=== PATIENT | female | born 1960 | race Caucasian/White ===

== ENCOUNTER 2016-10-22 07:55 | Emergency (ER) | payer OTHER ==
[2016-10-22] VITALS (15 sets, daily range): BP systolic 128–166; BP diastolic 72–82; PULSE 63–108; RESP 16–20; TEMP 98–98.8; O2SAT 93–99
[~2016-10-22 07:55] MED LIST: ZOCO40TA PO
[2016-10-22] MEDS ORDERED: NITROGLYCERIN-DEXTROSE INJ 250 ML ONE (08:05)
[2016-10-22] MEDS ORDERED: ASPIRIN 81 MG CHEW TAB ONE (08:05)
[2016-10-22] MEDS ORDERED: HEPARIN SODIUM - IV 10,000 UNITS/10 ML VIAL ONE ×2 (08:05→08:54)
[2016-10-22] MEDS ORDERED: NITROGLYCERIN 0.4 MG SL 25 TABS/BTL SL ONE (08:06)
[2016-10-22] MEDS ORDERED: SODIUM CHLOR 0.9% 1000 ML INJ 1,000 ML IV ONE (08:07)
[2016-10-22] MEDS ORDERED: HEPARIN SODIUM - IV 10,000 UNITS/10 ML VIAL IV STA (08:07)
[2016-10-22] MEDS ORDERED: NITROGLYCERIN 0.4 MG SL 25 TABS/BTL SL STA (08:07)
[2016-10-22] MEDS ORDERED: ASPIRIN 81 MG CHEW TAB PO STA (08:07)
[2016-10-22] MEDS ORDERED: SODIUM CHLORIDE 0.9% FLUSH 10 ML FLUSH IVF PRN (08:15)
[2016-10-22] MEDS ORDERED: NITROGLYCERIN-DEXTROSE INJ 250 ML IV SCH (08:15)
[2016-10-22 08:25] LABS: CHLORIDE 106 MEQ/L (98-107); POTASSIUM 3.9 MEQ/L (3.5-5.1); SODIUM (NA) 138 MEQ/L (136-145)
--- NOTE | 2016-10-22 08:25 | PD ---
HPI Chief Complaint: STEMI Alert Time Seen by Provider: 08:07 Travel History International Travel<30 days: No Contact w/Intl Traveler<30days: No Traveled to known affect area: No History of Present Illness HPI Is a 56-year-old woman presents to the emergency department complaining of pressure-like chest discomfort rating in her back between her shoulder blades and in her arm. It started this morning at about an hour so ago while she was washing dishes. She states she's had the pain in her shoulder blades before intermittently with exertion but has never had the pain this severe. She is a history of hyperlipidemia and tobacco use but no history of coronary artery disease. She does not use illicit drugs. She was feeling well before this. History Past Medical History Narrative Medical Hyperlipidemia Tobacco use Social History Alcohol Use: No Tobacco Use: Yes (PPD) Allergies-Medications (Allergen,Severity, Reaction): Coded Allergies: Niacin (Unverified Adverse Reaction, Intermediate, feels like blood is burning, 01/05/10) No Known Allergies (Verified , 12/26/09) Reported Meds & Prescriptions Reported Meds & Active Scripts Active Reported Zocor (Simvastatin) 40 Mg Tab 40 Mg PO HS Review of Systems Except as stated in HPI: all other systems reviewed are Neg Physical Exam Narrative GENERAL: 56 year-old woman, appears uncomfortable but nontoxic. Apprehensive. SKIN: Focused skin assessment warm/dry. CARDIOVASCULAR: Regular rate and rhythm. No murmur appreciated. Symmetric peripheral pulses. RESPIRATORY: No accessory muscle use. Clear to auscultation. Breath sounds equal bilaterally. GASTROINTESTINAL: Abdomen soft, non-tender, nondistended. Hepatic and splenic margins not palpable. MUSCULOSKELETAL: No obvious deformities. No edema. NEUROLOGICAL: Awake and alert. No obvious cranial nerve deficits. Motor grossly within normal limits. Normal speech. PSYCHIATRIC: Apprehensive and anxious. Data Data Last Documented VS Vital Signs Date Time Temp Pulse Resp B/P Pulse Ox O2 Delivery O2 Flow Rate FiO2 10/22/16 08:04 98.7 93 20 152/78 99 Orders Nitroglycerin-Dextrose Inj (Nitroglyceri (10/22/16 08:05) Aspirin Chew (Aspirin Chew) (10/22/16 08:05) Heparin Inj (Heparin Inj) (10/22/16 08:05) Nitroglycerin Sl (Nitrostat Sl) (10/22/16 08:06) Troponin I (10/22/16 08:07) Ckmb (Isoenzyme) Profile (10/22/16 08:07) Complete Blood Count With Diff (10/22/16 08:07) Basic Metabolic Panel (Bmp) (10/22/16 08:07) Magnesium (Mg) (10/22/16 08:07) Calcium (10/22/16 08:07) Prothrombin Time / Inr (Pt) (10/22/16 08:07) Act Partial Throm Time (Ptt) (10/22/16 08:07) B-Type Natriuretic Peptide (10/22/16 08:07) Chest, Single Ap (10/22/16 08:07) Electrocardiogram (10/22/16 08:07) Oxygen Administration (10/22/16 08:07) Iv Access Insert/Monitor (10/22/16 08:07) Oximetry (10/22/16 08:07) Sodium Chlor 0.9% 1000 Ml Inj (Ns 1000 M (10/22/16 08:07) Sodium Chloride 0.9% Flush (Ns Flush) (10/22/16 08:15) Aspirin Chew (Aspirin Chew) (10/22/16 08:07) Nitroglycerin Sl (Nitrostat Sl) (10/22/16 08:07) Nitroglycerin-Dextrose Inj (Nitroglyceri (10/22/16 08:15) Heparin Inj (Heparin Inj) (10/22/16 08:07) MDM Medical Decision Making Medical Screen Exam Complete: Yes Emergency Medical Condition: Yes Interpretation(s) My review of EKG: Sinus rhythm at a rate of about 100, there is minimal anterior precordial ST elevations, about 1 mm, also seen and aVL, with lateral T wave inversions in aVL, with the suggestion of some reciprocal depressions in V5 V6. Findings are subtle and do not meet strict criteria for STEMI. Differential Diagnosis MS, pancreatitis, dissection, gastritis, hepatobiliary disease, other Narrative Course Medical decision making So 56 old who presents to the emergency department. She's having pressure-like discomfort in her chest rating to her back that started this morning. She looks uncomfortable but nontoxic. She saw in 5-7 out of 10 discomfort. Y differential diagnosis. EKG is concerning for myocardial ischemia. There is septal ST elevations with some lateral depressions, but not to the magnitude necessary for strict STEMI criteria. However, given her constellation of symptoms, and EKG findings, I did activate the Admitting Supervisor and speak with holder pile driving Dr. Celaya. Reviewed EKG together. Agreed that findings are subtle, but will take patient to the Admitting Supervisor for definitive evaluation. Diagnosis Primary Impression: STEMI (ST elevation myocardial infarction) Russell Rivera MD Oct 22, 2016 08:25
[2016-10-22 08:26] LABS: AUTOMATED NEUTROPHIL # 4.3 TH/MM3 (1.8-7.7); BASOPHIL # 0.1 TH/MM3 (0-0.2); BASOPHIL % 0.8 % (0.0-2.0); EOSINOPHIL # 0.1 TH/MM3 (0-0.4); EOSINOPHIL % 1.3 % (0.0-4.0); HEMATOCRIT 41.6 % (35.0-46.0); HEMO FLAGS DIFF FINAL; LYMPH % 38.2 % (9.0-44.0); LYMPHOCYTE # 3.3 TH/MM3 (1.0-4.8); MEAN CELL VOLUME 88.7 FL (80.0-100.0); MEAN CORPUSCULAR HEMOGLOBIN 30.9 PG (27.0-34.0); MEAN CORPUSCULAR HGB CONC 34.8 % (32.0-36.0); MONO % 8.4 % (0.0-8.0); NEUT % 51.3 % (16.0-70.0); PLATELET COUNT 311 TH/MM3 (150-450); RED BLOOD COUNT 4.69 MIL/MM3 (4.00-5.30); RED CELL DISTRIBUTION WIDTH 12.7 % (11.6-17.2); WHITE BLOOD COUNT 8.5 TH/MM3 (4.0-11.0)
[2016-10-22 08:28] LABS: ANION GAP 6 MEQ/L (5-15); BLOOD UREA NITROGEN 12 MG/DL (7-18); MAGNESIUM 2.1 MG/DL (1.5-2.5)
[2016-10-22 08:29] LABS: APTT (PATIENT) 27.4 SEC (24.3-30.1); INTERNATIONAL NORMALIZED RATIO 0.9 RATIO; PROTHROMBIN TIME - PATIENT 10.3 SEC (9.8-11.6)
[2016-10-22 08:32] LABS: GLOMERULAR FILTRATION RATE 69 ML/MIN (>89)
--- NOTE | 2016-10-22 08:32 | RADRPT ---
EXAM DATE/TIME: 10/22/2016 08:11 [place] COMPARISON: No previous studies available for comparison. INDICATIONS : STEMI ALERT. MEDICAL HISTORY : Smoker. SURGICAL HISTORY : Tubal ligation. section. ENCOUNTER: Initial ACUITY: 1 day PAIN SCORE: 8/10 LOCATION: chest FINDINGS: Portable AP view of the chest demonstrates a normal-sized cardiac silhouette. No effusion, consolidat ion, or pneumothorax is visualized. The bones and soft tissues demonstrate no acute abnormality. CONCLUSION: No acute cardiopulmonary abnormality is identified. Farhat So MD on October 22, 2016 at 8:29 Board Certified Radiologist. This report was verified electronically.
[2016-10-22 08:45] LABS: CREATINE KINASE 82 U/L (26-192)
[2016-10-22] MEDS ORDERED: HEPARIN-NS/PF INJ 500 ML ONE ×2 (08:54→09:02)
[2016-10-22] MEDS ORDERED: MIDAZOLAM HCL 2 MG/2 ML VIAL ONE (08:55)
[2016-10-22] MEDS ORDERED: MORPHINE SULFATE 8 MG/ML INJ ONE (09:40)
--- NOTE | 2016-10-22 10:04 | CATHPROC ---
Coeurative HIS Report Study Information Study Number Admission Scheduled Start Study Start [id number] Oct 22 2016 8:20AM 10/22/2016 Oct 22 2016 8:55AM [place] [facility] Cardiac Catheterization Admit Source Facility Department Transfer in from another acute care facility [facility] - Insurance Licensing Supervisor Physician and Clinical Staff Initial Konrad Ortiz Professor Of Vegetable Science Dania Nice,RON Professor Of Vegetable ScienceRiki Morocho RN Professor Of Vegetable Scienceparamjit Bonilla RN, Alvaro RecordTawny Mayen RCIS TECH2 Scrub Manpreet [place] RCIS(BS) Procedures Performed Procedure Location (Site) Vessel Name Angiogram LV AO Arch (A1) Aorta Angiogram LV LV Ventricle Coronary Angiograms LCA Left Coronary Coronary Angiograms RCA Right Coronary Equipment Time Research Contracts Supervisor Description Size Mfg Part Number Used/Scraped TRANSDUCER, TRFORTINOAVE [id number] 08:57 [employer] GASTELUM * Used W/ROGERIOCK *[id number] MPIS-502-10.0- INTRODUCER SET, 09:14 [employer] FR 5 SC-NT-U-SST Used MICROPUNCTURE, STIFFENED *[id number] 534-620T *[id number] 534-621T *[id number] PIGTAIL ANG. 145 INFINITI 534-652S CATHETER *[id number] 08:57 [employer] INDUSTRIES PACK, CCL CUSTOM * Used *[id number]- 08:57 [employer] MEDICAL SHEATH, FR6.5 PRELUDE 11CM FR 6.5 038ACT Used *[id number] 08:57 [employer] MEDICAL WIRE, 3MMJ .035 180CM 180CM Used *[id number] 08:57 [employer] MANIFOLD, 4 PORT * Used *[id number] 08:57 [employer] OMNIPAQUE, 350 MG, 150ML 150ML [id number] Used 09:30 [employer] OMNIPAQUE, 350 MG, 50ML 50ML [id number] Used 09:31 [employer] OMNIPAQUE, 350 MG, 50ML 50ML [id number] Used [id number] 08:57 [employer] MEDICAL BLANKET,WARM AIR CCL * Used *[id number] History: Allergies Allergy Reaction Niacin feels like blood is burning No Known Allergies History: Risk Factors Family History of Hypertension Dyslipidemia Previous NV Previous Heart Failure Premature CAD No Yes No No No Prior Valve Prior PCI Prior CABG Surgery No No No Cerebrovascular Peripheral Artery Chronic Lung On Dialysis Diabetes Disease Disease Disease No No No No No History: Symptoms/Diagnosis Selection Items Chest pain History: Stress Tests Stress or Imaging Studies Performed No History: Other Current Smoker Method Packs a Day Years Used Pack Years Yes Cigarettes 04 11 22 Labs Hgb (g/dl) Hct (%) WBC (l/cumm) Platelets (thousands) 11.60-17.00 35.00-51.00 4.00-11.00 150.00-450.00 14.5 41.6 8.5 311 Glucose (mg/dl) BUN (mg/dl) Creatinine (mg/dl) BUN:Creatinine (1:x) 74.00-106.00 7.00-18.00 0.50-1.30 10.00-20.00 119 12 0.8 15 Na (meq/l) K (meq/l) 136.00-145.00 3.50-5.10 3.9 3.9 Medication Medication Total Dose (Bolus/Oral) Medication Total Dosage/Unit 1% XYLOCAINE 20 mL FENTANYL 25 mcg MORPHINE 2 mg VERSED 0.5 mg Medications (Bolus/Oral) Medication Time Given Dosage/Unit Administered By Reason VERSED 10/22/2016 9:11:02 AM 0.5 mg Riki Oconnell 0.5 mg VERSED given in lab by Riki Oconnell RN in Left Antecubital via Peripheral IV. Ordered by Konrad Sanches. 1% XYLOCAINE 10/22/2016 9:11:46 AM 20 mL Konrad Celaya 20 mL 1% XYLOCAINE given in lab by Konrad Celaya in Right Groin via Subcutaneous. FENTANYL 10/22/2016 9:12:03 AM 25 mcg Riki Oconnell 25 mcg FENTANYL given in lab by Riki Oconnell RN in Left Antecubital via Peripheral IV. Ordered by Konrad Celaya. MORPHINE 10/22/2016 9:38:29 AM 2 mg Dania Nice 2 mg MORPHINE given in lab by Dania Nice, RON in Left Antecubital via Peripheral IV. Ordered by Konrad Caberra. Medication (Drip) Medication Time Given Dosage/Unit Concentration/Unit Diluent (ml) Solution IV Solutions 10/22/2016 8:55:42 AM 0 mL (IV) 500 NaCl .9 Patient arrived on IV Solutions in Left Antecubital via Peripheral IV. Pump/Drip Flow = 20 ml/hr usin g NaCl .9. NITROGLYCERIN DRIP 10/22/2016 8:55:50 AM 33.333 mcg/min 50 mg 250 D5W Patient arrived on 33.333 mcg/min NITROGLYCERIN DRIP in Right Antecubital via Peripheral IV. Pump/Dri p Flow = 10 ml/hr using D5W with a concentration of 50 mg in 250 ml. NITROGLYCERIN DRIP 10/22/2016 9:28:08 AM 33.333 mcg/min 50 mg 250 D5W 33.333 mcg/min NITROGLYCERIN DRIP discontinued in lab by Riki Oconnell, RON in Right Antecubital via Peripheral IV. Pump/Drip Flow = 10 ml/hr using D5W with a concentration of 50 mg in 250 ml. Ordered by Konrad Celaya. drip discontinued Initial Case Assessment Cardiovascular HR Rhythm NIBP Chest Pain 81 sr 141/81 1 Circulatory - Right Pulses Dorsalis Pedis Femoral Radial 3 3 3 Scale (0,1,2,3,4,d) Circulatory - Left Pulses Dorsalis Pedis Femoral Radial 3 3 Scale (0,1,2,3,4,d) Neurological State Oriented to time-place- Alert Moves all extremities person Respiration - General Respiration Rate SpO2 (%) O2 (lpm) (B/min) 14 100 2 Chronological Log Time Study Chronological Log 8:54:39 MD arrived. 8:54:54 Patient arrived directly from [place] [facility]. 8:55:24 Patient Name, D.O.B, / Armband Verified By R.N. 8:55:25 Consent signed by the physician and the patient and verified by the Insurance Licensing Supervisor staff. 8:55:26 Pre-op and post- op instructions given; patient acknowledges understanding of instructions . 8:55:28 Verbal Stimulation=2 Physical Stimulation=2 Airway=2 Respiration=2 TOTAL=8. (0=absent, 1=l imited, 2=present) 8:55:32 Presedation assessment performed by Insurance Licensing Supervisor RN. 8:55:34 Patient has been NPO for More than 6Hrs. 8:55:35 Skin Breakdown-none 8:55:36 Disposable Defibrillator Pads Placed On Patient. 8:55:38 Teresa Prominences Protected 8:55:42 A # 20 IV was noted in the Antecubital (left). Grade = patent 8:55:42 Patient arrived on IV Solutions in Left Antecubital via Peripheral IV. Pump/Drip Flow = 20 m l/hr using NaCl .9. 8:55:44 History and physical on the chart or being dictated. 8:55:49 A # 20 IV was noted in the Antecubital (right). Grade = patent Patient arrived on 33.333 mcg/min NITROGLYCERIN DRIP in Right Antecubital via Peripheral IV. Pum p/Drip Flow = 10 8:55:50 ml/hr using D5W with a concentration of 50 mg in 250 ml. Vitals capture started with the following parameters, Patient=Adult, Interval=5 min, Initial Pre yjlni=809 mmHg, 8:57:35 Deflation Rate=5 mmHg, Cuff placed on Right Arm 8:57:38 Vitals capture stopped. Assessment: Initial Case, HR=81 BPM, Rhythm=sr, DWIX=432/81 mmhg, Chest Pain=1 Right Pulses: Abdoulaye Ped=3, Femoral=3, Radial=3 8:58:55 Left Pulses: Abdoulaye Ped=3, Femoral=3 Neurological: State=Alert, Ox3, [place] Respiration: Resp=14 B/min, EqI2=697 %, O2=2 lpm Vitals capture started with the following parameters, Patient=Adult, Interval=5 min, Initial Pre vcanu=364 mmHg, 8:58:56 Deflation Rate=5 mmHg, Cuff placed on Right Arm 8:59:33 HR=82 bpm, YWKD=179/81 mmhg, XuL0=195 %, Resp=12 B/min, Pain=1, Gale=10, Alas=2 9:04:36 HR=81 bpm, TQNH=918/80 mmhg, NlC5=092.0 %, Resp=19 B/min, Pain=1, Gale=10, Alas=2 9:05:06 Bilateral groins prepped with 2% chlorhexidine, and with a 3 min. waiting time. 9:09:14 Pressure channel 1 zeroed. 9:09:33 HR=89 bpm, INBD=151/76 mmhg, IdT5=223.0 %, Resp=11 B/min, Gale=10 Time Out. Correct patient, correct procedure, correct physician, power injector loaded with cont rast with surgical team 9:10:43 present. Time Out Concurred by MD and individual staff in procedure 9:11:02 0.5 mg VERSED given in lab by Riki Oconnell, RN in Left Antecubital via Peripheral IV. Orde red by Konrad Celaya. 9:11:33 Case Start 9:11:46 20 mL 1% XYLOCAINE given in lab by Konrad Celaya in Right Groin via Subcutaneous. 9:12:03 25 mcg FENTANYL given in lab by Riki Oconnell, RN in Left Antecubital via Peripheral IV. Or dered by Konrad Celaya. 9:12:48 Access site was Right Femoral Artery. A INTRODUCER SET, MICROPUNCTURE, STIFFENED FR 5 was advanced into the Fem Art (right) using the 9:12:59 Percutaneous technique. A SHEATH, FR6.5 PRELUDE 11CM FR 6.5 was exchanged in the Fem Art (right). This was necessary in order to 9:13:34 accomodate a larger catheter. Recorded Pressure: FA, HR=85, Condition=Condition 1 9:14:19 (Femoral Artery) FA 126/62/88 9:14:35 HR=90 bpm, TTVZ=210/71 mmhg, CxN6=236.0 %, Resp=8 B/min 9:14:36 An injection in the Fem Art (right) was made through the SHEATH, FR6.5 PRELUDE 11CM FR 6.5. 9:14:51 Reference ECG taken A JR 4.0 INFINITI CATHETER FR 6 was advanced over a wire. OMNIPAQUE, 350 MG, 150ML 150ML was use d for 9:14:56 injections. 9:17:13 The RCA was injected and visualized at various angles. OMNIPAQUE, 350 MG, 150ML 150ML used. Recorded Pressure: Ao, HR=87, Condition=Condition 1 9:17:18 (Aorta) Ao 117/66/86 After removing the current catheter a JL 4.0 INFINITI CATHETER FR 6 was advanced over a WIRE, 3M MJ .035 180CM 9:17:59 180CM. 9:19:27 The LCA was injected and visualized at various angles. OMNIPAQUE, 350 MG, 150ML 150ML used. 9:19:29 HR=86 bpm, NHHI=814/75 mmhg, SpO2=99.0 %, Resp=8 B/min 9:24:33 HR=83 bpm, CFJU=239/70 mmhg, SpO2=99.0 %, Resp=7 B/min A PIGTAIL ANG. 145 INFINITI CATHETER FR 6 was advanced over a wire. OMNIPAQUE, 350 MG, 150ML 150 ML was 9:25:06 used for injections. Recorded Pressure: LV, HR=78, Condition=Condition 1 9:26:26 (Left Ventricle) LV 114/1/11 33.333 mcg/min NITROGLYCERIN DRIP discontinued in lab by Riki Oconnell, RN in Right Antecubit al via Peripheral IV. 9:28:08 Pump/Drip Flow = 10 ml/hr using D5W with a concentration of 50 mg in 250 ml. Ordered by Konrad Sanches. drip discontinued 9:29:18 The LV was injected at 10 cc/sec for a total of 30. OMNIPAQUE, 350 MG, 50ML 50ML used. 9:29:32 HR=80 bpm, IZQT=297/71 mmhg, SpO2=99.0 %, Resp=9 B/min, Gale=10, Alas=2 9:30:42 The AO Arch (A1) was injected at 20 cc/sec for a total of 40. OMNIPAQUE, 350 MG, 50ML 50ML used. 9:31:37 Catheter was removed 9:34:01 Activated Clotting Time Drawn 9:34:08 Case End 9:34:31 HR=78 bpm, NMQD=657/74 mmhg, SpO2=99.0 %, Resp=8 B/min 9:37:32 ACT (Normal Range 90-180) = 158 9:38:29 2 mg MORPHINE given in lab by Dania Nice, RON in Left Antecubital via Peripheral IV. O rdered by Konrad Celaya. 9:39:30 HR=78 bpm, HTOZ=643/75 mmhg, SpO2=99.0 %, Resp=8 B/min 9:43:35 Sheath removed; pressure applied to access site. 9:44:31 HR=75 bpm, SSCF=093/74 mmhg, SpO2=99.0 %, Resp=12 B/min, Gale=10 9:49:34 HR=71 bpm, MMQJ=158/69 mmhg, SpO2=97.0 %, Resp=8 B/min, Gale=10 9:54:33 HR=72 bpm, BIQI=166/75 mmhg, SpO2=96.0 %, Resp=8 B/min, Pain=0, Gale=10, Alas=2 9:59:36 HR=74 bpm, SEKN=365/66 mmhg, SpO2=97.0 %, Resp=11 B/min, Pain=0, Alas=2 10:01:01 Patient voiced chest pain subsided 10:02:49 Hemostasis obtained. Sterile dressing applied to site. End Study - Contrast Media Used In Study Contrast Total Opened (mL) Total Used (mL) Total Wasted (mL) Omnipaque 110 110 0 End Study - Maximum Contrast Load Max Contrast Load (mL) 443.8 End Study - Radiation Exposure Fluoro Time (minutes) 3.1 End Study - Sheaths Sheaths Pulled By Sheath Hold Time (min) Manpreet [place] 20 End Study - Patient Disposition Complications Transferred To Telemetry Bed
--- NOTE | 2016-10-22 10:33 | MH ---
cc: KONRAD GARNICA DO DATE OF ADMISSION: 10/22/2016 REASON FOR ADMISSION Chest pain with EKG changes. HISTORY OF PRESENT ILLNESS Dania Reilly is a pleasant 56-year-old female who presented to the [facility] Emergency Room due to chest pain on October 22, 2016. She states that she woke up in the morning and was cleaning her dishes and started getting pain in the center of her chest. This was a pressure-like pain but also had somewhat of a stabbing component to it. She said that the pain somewhat went into her left shoulder blade and left shoulder and down her arm. She states that she has had this pain once or twice while walking but never really noticed it before otherwise. On presentation to the emergency room an EKG was done and there was concern for minimal ST-T changes with possible ST elevation in the anterior leads. I was called emergently and felt that she should undergo cardiac catheterization due to her continual chest pain and EKG changes. On arrival to the lab she was on a nitroglycerin drip and had chest pain 5/10. PAST MEDICAL HISTORY 1. Hyperlipidemia. 2. Tobacco abuse. PAST SURGICAL HISTORY 1. . 2. Right knee arthroscopy. ALLERGIES No known drug allergies. MEDICATIONS Zocor 40 mg every night. FAMILY HISTORY Denies premature coronary artery disease or sudden cardiac within the family. SOCIAL HISTORY Denies alcohol or drug abuse. She does smoke around 10-12 cigarettes per day. REVIEW OF SYSTEMS 14-systems were reviewed including osteopathic. Pertinent positives and negatives as above, otherwise negative. PHYSICAL EXAMINATION VITAL SIGNS: Temperature 98.7, heart rate 93, blood pressure 152/78, respirations 20, pulse ox 99% on room air. GENERAL: In general the patient appears older than her stated age. Awake, alert and oriented x3. Extraocular muscles intact. Mucous membranes moist. NECK: Supple. No JVD at 45 degrees. No carotid bruits heard bilaterally. Carotid upstroke is brisk in nature. HEART: Regular rate and rhythm. Positive first and second heart sounds with no murmurs, gallops or rubs. LUNGS: Decreased breath sounds at bilateral bases but no overt wheezes, rales or rhonchi. ABDOMEN: Soft, nontender, nondistended. No organomegaly noted. EXTREMITIES: No clubbing, cyanosis or edema. Femoral and distal pulses intact bilaterally. NEUROLOGIC: No focal deficits. SKIN: Warm, dry and intact. MUSCULOSKELETAL: Osteopathically, no kyphoscoliosis, lordosis or paraspinal tender points. LABORATORY Hemoglobin 14.5, hematocrit 41.6, platelets 311. Potassium 3.9. BUN 12, creatinine 0.86. Troponin 0.02. BNP 13. ELECTROCARDIOGRAM Electrocardiogram (October 22, 2016 at 0758): Sinus rhythm at 95 beats per minute, questionable ST elevation in aVL, V1, V2, not meeting criteria for STEMI. IMPRESSION 1. Chest pain concerning for coronary insufficiency. 2. EKG changes with no criteria for STEMI, although overall concerning. 3. Tobacco abuse. 4. Hyperlipidemia. RECOMMENDATIONS 1. As Danai presented with chest pain and continues to have chest pain with concerning EKG changes, I feel that she should undergo urgent cardiac catheterization to rule out significant coronary artery disease. She does have some changes in the high lateral of aVL that are more concerning for possible circumflex disease as this does not always show well on EKG. 2. She will be transferred emergently from [place] to [facility]. 3. Risks, benefits and alternatives were explained to her about the procedure and she consents to such. 4. Further recommendations will be made after coronary visualization. Thank you for allowing me to see Dania Reilly. If there are any questions, please do not hesitate to call. Konrad Garnica DO VGP/BT /10:01 AM /10:16 AM
--- NOTE | 2016-10-22 10:45 | MA ---
cc: KONRAD GARNICA DO DATE: 10/22/2016 PROCEDURE Left heart catheterization, coronary angiogram, left ventriculogram, aortic root angiogram, moderate sedation 23 minutes. PREPROCEDURE DIAGNOSIS EKG changes concerning for STEMI, although not meeting criteria, chest pain. POSTPROCEDURE DIAGNOSIS Minimal coronary artery disease by cardiac catheterization, ejection fraction 60% by left ventriculogram. PROCEDURE MEDICATIONS Versed 0.5 mg, Fentanyl 25 mcg, morphine 2 mg. CONTRAST USED 110 cc. FLUOROSCOPY TIME 3.1 minutes. SEDATION Moderate sedation at 23 minutes. ESTIMATED BLOOD LOSS 10 cc. PROCEDURAL SUMMARY Dania Reilly is a pleasant 56-year-old female who originally presented with chest pain to [facility] Emergency Room on October 22, 2016. Her EKG had concerning changes which did not meet STEMI criteria but with concern for her chest pain and changes it was felt that she should undergo urgent cardiac catheterization. Risks, benefits and alternatives were explained to her and she consented as such. She was brought to the lab and prepped in the usual sterile fashion. The right femoral artery was accessed using a modified Seldinger technique and placement of a 6-Faroese sheath. This was easily aspirated and flushed. A JR4 was advanced over a J-wire to the ascending aorta and across the aortic valve into the left ventricle. During this she had multiple episodes of ectopy and it was felt that the JR4 should be removed as it could not be placed without ectopy. The JR4 was then used for selective angiography of the right coronary system. This was exchanged out for a JL4 which was used for selective angiography of the left coronary system. The JL4 was then exchanged for a pigtail catheter and this was used to cross the aortic valve and obtain an LVEDP. An left ventriculogram was done showing an ejection fraction of 60%. The pigtail was then used for an aortic root shot which showed no dissection. The pigtail was then removed. The patient was still having chest pain on nitroglycerin so nitroglycerin was stopped. The patient was given 2 mg of morphine and her chest pain was gone. The sheath was pulled in the lab as ACT was below 180. The patient left the laborer road cardiovascularly stable without chest pain. FINDINGS CORONARY ANGIOGRAPHY LEFT MAIN: Relatively short but normal size. It bifurcates into an LAD and circumflex. LAD: Normal-sized vessel with mild tortuosity throughout. 20% disease in the proximal portion with 30% long smooth disease in the midportion. It gives off one major diagonal with no significant disease. LEFT CIRCUMFLEX: Moderate to large size vessel with mild luminal irregularities through the midportion. The first obtuse marginal has a 20-30% ostial lesion. The second obtuse marginal with no significant disease. RCA: Moderate size vessel with no significant disease throughout. It is a dominant vessel and there is no significant disease in the PDA. LEFT VENTRICULOGRAPHY LV ejection fraction 60% with no wall motion abnormalities noted, LVEDP 11. AORTIC ROOT ANGIOGRAPHY No dissections or aneurysms noted. IMPRESSION 1. Chest pain which has since been relieved with morphine. 2. Questionable EKG changes concerning for ST-elevation, although not meeting criteria. 3. Minimal coronary artery disease as above. 4. Normal ejection fraction by left ventriculogram. RECOMMENDATIONS 1. No cause of Dania's chest pain has been alluded at this time, although it was relieved with morphine and not nitroglycerin. 2. Will obtain a 2-D echo to look at her overall left ventricular function, cardiac structure and possible valvulopathies. 3. Will continue to check troponins. 4. Will consult the hospitalist team and will discuss with them the consideration of a possible V/Q scan to rule out a PE, although she has not been hypoxic and she was mildly tachycardic on arrival. 5. I spoke to her for greater than three minutes about tobacco cessation. Thank you for allowing me to see Dania Reilly. If there are any questions, please do not hesitate to call. Konrad Garnica DO VGP/BT /10:09 AM /10:24 AM
[2016-10-22] MEDS ORDERED: IOHEXOL 350 MG/ML 100 ML BTL (for Cath Lab) OTHER ONE (11:36)
[2016-10-22] MEDS ORDERED: IOHEXOL 350 MG/ML 50 ML BTL (for Cath Lab) OTHER ONE (11:36)
--- NOTE | 2016-10-22 15:13 | RADRPT ---
EXAM DATE/TIME: 10/22/2016 14:03 [place] COMPARISON: No previous studies available for comparison. INDICATIONS : Substernal chest pain with dyspnea. STEMI alert. DOSE: 8.5 mCi Tc99m MAA IV 0.97 mCi Tc99m DTPA aerosol MEDICAL HISTORY : Hypercholesterolemia. SURGICAL HISTORY : Tubal ligation. section. ENCOUNTER: Initial ACUITY: 1 day PAIN SCALE: 8/10 LOCATION: Left chest TECHNIQUE: Following five minutes of tidal breathing of DTPA aerosol, planar images of the lungs were performed in eight projections. The patient was then injected with MAA, and eight-view perfusion scan was perf ormed. FINDINGS: There is inhomogeneous ventilation with normal perfusion. Findings would suggest inflammatory defect . CONCLUSION: Low probability for pulmonary embolism Ayaan Garber MD FACR on October 22, 2016 at 15:11 Board Certified Radiologist. This report was verified electronically.
--- NOTE | 2016-10-22 17:02 | PD.CONS ---
HPI Service [facility] Hospitalists Consult Requested By Cardiology Reason for Consult Medical management Primary Care Physician Momo Britton MD Diagnoses: History of Present Illness Dania Reilly is a pleasant 56-year-old female who presented to the [facility] Emergency Room due to chest pain on October 22, 2016. She states that she woke up in the morning and was cleaning her dishes and started getting pain in the center of her chest. This was a pressure-like pain but also had somewhat of a stabbing component to it. She said that the pain somewhat went into her left shoulder blade and left shoulder and down her arm. She states that she has had this pain once or twice while walking but never really noticed it before otherwise. On presentation to the emergency room an EKG was done and there was concern for minimal ST-T changes with possible ST elevation in the anterior leads. I was called emergently and felt that she should undergo cardiac catheterization due to her continual chest pain and EKG changes. On arrival to the lab she was on a nitroglycerin drip and had chest pain 5/10. Cardiac catheter was negative for any acute occlusion. VQ scan was also negative for pulmonary embolism. Review of Systems Except as stated in HPI: all other systems reviewed are Neg Past Family Social History Allergies: Coded Allergies: Niacin (Unverified Adverse Reaction, Intermediate, feels like blood is burning, 01/05/10) No Known Allergies (Verified , 12/26/09) Past Medical History Hypercholesterolemia Past Surgical History 2 C-sections and knee repair Reported Medications Reported Meds & Active Scripts Active Reported Zocor (Simvastatin) 40 Mg Tab 40 Mg PO HS Family History Hypertension and premature stroke Social History Lives with , has a greater than 40 pack per day history of smoking Physical Exam Vital Signs Vital Signs Date Time Temp Pulse Resp B/P Pulse Ox O2 Delivery O2 Flow Rate FiO2 10/22/16 08:25 99 Room Air 10/22/16 08:21 108 20 166/75 95 Room Air 10/22/16 08:05 Room Air 10/22/16 08:04 98.7 93 20 152/78 99 Physical Exam VS: Reviewed, stable, afebrile GENERAL: Resting comfortably, no acute distress SKIN: Warm and dry. EYES: Pupils equal and round. No scleral icterus. No injection or drainage. ENT: No nasal bleeding or discharge. Mucous membranes pink and moist. CARDIOVASCULAR: Regular rate and rhythm. no murmurs RESPIRATORY: No accessory muscle use. Clear to auscultation. Breath sounds equal bilaterally. GASTROINTESTINAL: Abdomen soft, non-tender, nondistended. Hepatic and splenic margins not palpable. MUSCULOSKELETAL: Extremities without clubbing, cyanosis, or edema. No obvious deformities. 5/5 gross strength in upper and lower extremities proximally NEUROLOGICAL: Awake and alert. No obvious cranial nerve deficits. No facial droop nor slurred speech noted. PSYCHIATRIC: Appropriate mood and affect; insight and judgment normal. Laboratory Laboratory Tests Test 10/22/16 10/22/16 08:05 15:10 White Blood Count 8.5 Red Blood Count 4.69 Hemoglobin 14.5 Hematocrit 41.6 Mean Corpuscular Volume 88.7 Mean Corpuscular Hemoglobin 30.9 Mean Corpuscular Hemoglobin 34.8 Concent Red Cell Distribution Width 12.7 Platelet Count 311 Mean Platelet Volume 8.5 Neutrophils (%) (Auto) 51.3 Lymphocytes (%) (Auto) 38.2 Monocytes (%) (Auto) 8.4 Eosinophils (%) (Auto) 1.3 Basophils (%) (Auto) 0.8 Neutrophils # (Auto) 4.3 Lymphocytes # (Auto) 3.3 Monocytes # (Auto) 0.7 Eosinophils # (Auto) 0.1 Basophils # (Auto) 0.1 CBC Comment DIFF FINAL Differential Comment Prothrombin Time 10.3 Prothromb Time International 0.9 Ratio Activated Partial 27.4 Thromboplast Time Sodium Level 138 Potassium Level 3.9 Chloride Level 106 Carbon Dioxide Level 26.0 Anion Gap 6 Blood Urea Nitrogen 12 Creatinine 0.86 Estimat Glomerular Filtration 69 Rate Random Glucose 119 Calcium Level 9.4 Magnesium Level 2.1 Total Creatine Kinase 82 Troponin I LESS THAN 0.02 0.02 B-Type Natriuretic Peptide 13 Result Diagram: 10/22/1680410/22/16804 Assessment and Plan Problem List: (1) STEMI (ST elevation myocardial infarction) ICD Code: I21.3 Status: Acute Assessment and Plan 56-year-old white female admitted for STEMI Chest pain - originally admitted by cardiology for possible acute coronary syndrome however Is not showing any acute occlusions, notable mild atherosclerotic disease. VQ scan is of low probability for PE. Patient is currently chest pain-free will monitor on telemetry overnight. Continue aspirin and home pravastatin. Will start PPI to see if this helps with minimizing any recurrence of chest pain. Tacos Huertas MD Oct 22, 2016 17:02
[2016-10-22] MEDS: PANTOPRAZOLE SOD 40 MG DELAYED RELEASE TAB PO SCH (17:15)
--- NOTE | 2016-10-22 18:11 | ECHRPT ---
Indication: chest pain CONCLUSIONS The left ventricular systolic function is normal with an estimated ejection fraction in the range of 55-60%. Doppler parameters are consistent with impaired left ventricular relaxtion (grade 1 diastolic dysfun ction). Trace mitral valve regurgitation. There is mild tricuspid valve regurgitation. BP: / HR: Rhythm: MEASUREMENTS (Male / Female) Normal Values Technical Quality:Technically difficult study 2D ECHO LV Diastolic Diameter PLAX 3.5 cm 4.2 - 5.9 / 3.9 - 5.3 cm LV Systolic Diameter PLAX 2.7 cm IVS Diastolic Thickness 0.8 cm 0.6 - 1.0 / 0.6 - 0.9 cm LVPW Diastolic Thickness 0.8 cm 0.6 - 1.0 / 0.6 - 0.9 cm LV Relative Wall Thickness 0.4 RV Internal Dim ED PLAX 2.7 cm M-MODE Aortic Root Diameter MM 2.3 cm LA Systolic Diameter MM 2.7 cm LA Ao Ratio MM 1.2 AV Cusp Separation MM 1.5 cm DOPPLER Mitral E Point Velocity 89.3 cm/s Mitral A Point Velocity 113.0 cm/s Mitral E to A Ratio 0.8 LV E' Lateral Velocity 7.5 cm/s Mitral E to LV E' Lateral Ratio 11.9 LV E' Septal Velocity 7.7 cm/s Mitral E to LV E' Septal Ratio 11.6 FINDINGS LEFT VENTRICLE Normal left ventricular size. Wall thickness is normal. The left ventricular systolic function is normal with an estimated ejection fraction in the range of 55-60%. Doppler parameters are consistent with impaired left ventricular relaxtion (grade 1 diastolic dysfun ction). RIGHT VENTRICLE Normal right ventricular size and systolic function. LEFT ATRIUM The left atrial size is normal. RIGHT ATRIUM The right atrial size is normal. ATRIAL SEPTUM The interatrial septum not well visualized. AORTA The aortic root and proximal ascending aorta are normal in size on limited imaging. MITRAL VALVE Structurally normal mitral valve. Trace mitral valve regurgitation. AORTIC VALVE The aortic valve is not well visualized. TRICUSPID VALVE Structurally normal tricuspid valve. There is mild tricuspid valve regurgitation. PULMONARY VALVE The pulmonary valve is not well visualized. VESSELS The inferior vena cava is normal in size. PERICARDIUM No pericardial effusion. Konrad Celaya DO (Electronically Signed) Final Date:22 October 2016 18:09
[2016-10-22] MEDS ORDERED: PRAVASTATIN SOD 80 MG TAB PO SCH (21:00)
[2016-10-22] MEDS ORDERED: oxyCODONE/ACETAMINOPHEN 5 MG/325 MG TAB PO PRN (21:45)
[2016-10-23] VITALS (9 sets, daily range): BP systolic 123–132; BP diastolic 69–79; PULSE 62–78; RESP 16–18; TEMP 98; O2SAT 94–95
[2016-10-23 07:54] LABS: AUTOMATED NEUTROPHIL # 3.6 TH/MM3 (1.8-7.7); BASOPHIL % 0.3 % (0.0-2.0); EOSINOPHIL # 0.1 TH/MM3 (0-0.4); EOSINOPHIL % 0.8 % (0.0-4.0); HEMATOCRIT 40.1 % (35.0-46.0); HEMO FLAGS DIFF FINAL; LYMPH % 39.2 % (9.0-44.0); LYMPHOCYTE # 2.7 TH/MM3 (1.0-4.8); MEAN CELL VOLUME 91.6 FL (80.0-100.0); MEAN CORPUSCULAR HEMOGLOBIN 30.5 PG (27.0-34.0); MEAN CORPUSCULAR HGB CONC 33.3 % (32.0-36.0); MONO % 8.2 % (0.0-8.0); NEUT % 51.5 % (16.0-70.0); PLATELET COUNT 254 TH/MM3 (150-450); RED BLOOD COUNT 4.38 MIL/MM3 (4.00-5.30); RED CELL DISTRIBUTION WIDTH 13.7 % (11.6-17.2); WHITE BLOOD COUNT 6.9 TH/MM3 (4.0-11.0)
[2016-10-23 08:17] LABS: BICARBONATE 25.7 MEQ/L (21.0-32.0)
[2016-10-23] MEDS ORDERED: ASPIRIN 81 MG CHEW TAB CHEW SCH (09:00)
[2016-10-23] MEDS: PANTOPRAZOLE SOD 40 MG DELAYED RELEASE TAB PO SCH (09:07)
[2016-10-23] MEDS ORDERED: ASPI81CH25 CHEW (11:48)
--- NOTE | 2016-10-23 11:49 | HHI.DCPOC ---
Discharge Care Plan Your Health Problems Are: Chest Pain Goals to Promote Your Health * To prevent worsening of your condition and complications * To maintain your health at the optimal level Directions to Meet Your Goals Take your medications as prescribed Follow your dietary instruction Follow activity as directed May take advil or aleve as needed for chest wall pain. Have regular doctor check your kidney function upon your f/u visit since the contrast dye can cause kidney impairment. Keep your appointments as scheduled Take your immunizations and boosters as scheduled If your symptoms worsen call your PCP, if no PCP go to Urgent Care Center or Emergency Room Smoking is Dangerous to Your Health. Avoid second hand smoke Call the 24-hour hour crisis hotline for domestic abuse at Tacos Huertas MD Oct 23, 2016 11:49
--- NOTE | 2016-10-23 11:50 | HHI.DCPOC ---
Discharge Care Plan Goals to Promote Your Health * To prevent worsening of your condition and complications * To maintain your health at the optimal level Directions to Meet Your Goals Take your medications as prescribed Follow your dietary instruction Follow activity as directed If you feel that your pain is related to meals, you may take OTC meds for this or seek a prescription from your PCP. Otherwise you can take advil or aleve for chest wall pain. Keep your appointments as scheduled Take your immunizations and boosters as scheduled If your symptoms worsen call your PCP, if no PCP go to Urgent Care Center or Emergency Room Smoking is Dangerous to Your Health. Avoid second hand smoke Call the 24-hour hour crisis hotline for domestic abuse at Tacos Huertas MD Oct 23, 2016 11:50
--- NOTE | 2016-10-23 12:46 | PD.CARD.PN ---
Subjective Subjective Remarks No problems over night No chest pain/SOB Objective Medications Current Medications Nitroglycerin/ Dextrose (Nitroglycerin-Dextrose Inj) 250 ml @ As Directed STK- MED ONCE .ROUTE ; Start 10/22/16 at 08:05; Stop 10/22/16 at 08:06; Status DC Aspirin (Aspirin Chew) 324 mg STK-MED ONCE .ROUTE Last administered on 08:09; Start 10/22/16 at 08:05; Stop 10/22/16 at 08:06; Status DC Heparin Sodium (Porcine) (Heparin Inj) 10,000 units STK-MED ONCE .ROUTE ; Start 10/22/16 at 08:05; Stop 10/22/16 at 08:06; Status DC Nitroglycerin 0.4 mg 0.4 mg STK-MED ONCE SL Last administered on 10/22/16 08:10 ; Start 10/22/16 at 08:06; Stop 10/22/16 at 08:07; Status DC Sodium Chloride (NS 1000 ml Inj) 1,000 ml @ 0 mls/hr Q0M ONCE IV Last administered on 10/22/16 08:07; Start 10/22/16 at 08:07; Stop 10/22/16 at 08:10; Status DC Sodium Chloride (NS Flush) 2 ml UNSCH PRN IVF FLUSH AFTER USING IV ACCESS; Start 10/22/16 at 08:15; Stop 10/23/16 at 12:37; Status DC Aspirin (Aspirin Chew) 324 mg NOW STAT PO ; Start 10/22/16 at 08:07; Stop at 08:10; Status DC Nitroglycerin 0.4 mg 0.4 mg NOW STAT SL ; Start 10/22/16 at 08:07; Stop 10/22/16 at 08:10; Status DC Nitroglycerin/ Dextrose (Nitroglycerin-Dextrose Inj) 250 ml @ 0 mls/hr TITRATE IV Last administered on 10/22/16 08:14; Start 10/22/16 at 08:15; Stop 10/23/16 at 12:37; Status DC Heparin Sodium (Porcine) (Heparin Inj) 4,300 units NOW STAT IV Last administered on 10/22/16 08:12; Start 10/22/16 at 08:07; Stop 10/22/16 at 08:10; Status DC Heparin Sodium (Porcine) 70503 units 10,000 units STK-MED ONCE .ROUTE ; Start at 08:54; Stop 10/22/16 at 08:55; Status DC Heparin Sodium/ Sodium Chloride (Heparin-NS/Pf Inj) 500 ml @ As Directed STK- MED ONCE .ROUTE Last administered on 10/22/16 08:54; Start 10/22/16 at 08:54; Stop 10/22/16 at 08:55; Status DC Midazolam HCl (Versed Inj) 2 mg STK-MED ONCE .ROUTE Last administered on 09:11; Start 10/22/16 at 08:55; Stop 10/22/16 at 08:56; Status DC Fentanyl Citrate 100 mcg 100 mcg STK-MED ONCE .ROUTE Last administered on 09:12; Start 10/22/16 at 08:55; Stop 10/22/16 at 08:56; Status DC Heparin Sodium/ Sodium Chloride (Heparin-NS/Pf Inj) 500 ml @ As Directed STK- MED ONCE .ROUTE Last administered on 10/22/16 09:02; Start 10/22/16 at 09:02; Stop 10/22/16 at 09:03; Status DC Morphine Sulfate (Morphine Inj) 8 mg STK-MED ONCE .ROUTE Last administered on 09:40; Start 10/22/16 at 09:40; Stop 10/22/16 at 09:41; Status DC Pravastatin Sodium (Pravachol) 80 mg HS PO Last administered on 10/22/16 20:52 ; Start 10/22/16 at 21:00; Stop 10/23/16 at 12:37; Status DC Aspirin (Aspirin Chew) 81 mg DAILY CHEW Last administered on 10/23/16 09:07; Start 10/23/16 at 09:00; Stop 10/23/16 at 12:37; Status DC Iohexol (OMNIPAQUE 350 INJ (Weapons Engineer)) 100 ml STK-MED ONCE OTHER ; Start at 11:36; Stop 10/22/16 at 11:37; Status DC Iohexol (OMNIPAQUE 350 INJ (Weapons Engineer)) 50 ml STK-MED ONCE OTHER ; Start 10/22/16 at 11:36; Stop 10/22/16 at 11:37; Status DC Pantoprazole Sodium (Protonix) 40 mg DAILY PO Last administered on 10/23/16 09: 07; Start 10/22/16 at 17:15; Stop 10/23/16 at 12:37; Status DC Oxycodone/ Acetaminophen (Percocet 5-325 Mg) 1 tab Q6H PRN PO Pain Last administered on 10/22/16 23:20; Start 10/22/16 at 21:45; Stop 10/23/16 at 12:37; Status DC Vital Signs / I&O Vital Signs Date Time Temp Pulse Resp B/P Pulse Ox O2 Delivery O2 Flow Rate FiO2 10/23/16 08:00 98.0 66 18 132/69 95 10/23/16 08:00 78 10/23/16 07:00 72 10/23/16 06:00 67 10/23/16 05:00 71 10/23/16 04:00 62 10/23/16 03:00 70 10/23/16 03:00 98.0 62 16 123/79 94 10/23/16 02:00 64 10/23/16 01:00 72 10/23/16 00:26 16 10/23/16 00:00 66 10/22/16 23:00 64 10/22/16 23:00 98.0 72 16 142/82 95 10/22/16 22:00 76 10/22/16 21:00 80 10/22/16 20:00 70 10/22/16 19:00 66 10/22/16 19:00 98.0 72 16 133/76 93 10/22/16 18:00 80 10/22/16 17:00 72 10/22/16 16:00 68 10/22/16 16:00 98.7 71 18 128/72 95 10/22/16 15:00 63 10/22/16 13:00 68 I/O 10/22/16 10/22/16 10/22/16 10/23/16 10/23/16 10/23/16 07:00 15:00 23:00 07:00 15:00 23:00 Intake Total 720 ml 625 ml Balance 720 ml 625 ml Intake Oral 720 ml 625 ml # Voids 4 2 # Bowel Movements 0 Physical Exam GENERAL: AAOx3, NAD SKIN: Warm and dry. HEAD: Atraumatic. Normocephalic. EYES: Pupils equal and round. No scleral icterus. No injection or drainage. ENT: No nasal bleeding or discharge. Mucous membranes pink and moist. NECK: Trachea midline. No JVD. CARDIOVASCULAR: Regular rate and rhythm. RESPIRATORY: No accessory muscle use. Clear to auscultation. Breath sounds equal bilaterally. GASTROINTESTINAL: Abdomen soft, non-tender, nondistended. Hepatic and splenic margins not palpable. MUSCULOSKELETAL: Extremities without clubbing, cyanosis, or edema. No obvious deformities. Right groin no hematoma/bruit, distal pulses intact NEUROLOGICAL: Awake and alert. No obvious cranial nerve deficits. Motor grossly within normal limits. Five out of 5 muscle strength in the arms and legs. Normal speech. PSYCHIATRIC: Appropriate mood and affect; insight and judgment normal. Laboratory Laboratory Tests Test 10/22/16 10/23/16 10/23/16 15:10 01:03 06:04 Troponin I 0.02 NG/ML 0.06 NG/ML White Blood Count 6.9 TH/MM3 Red Blood Count 4.38 MIL/MM3 Hemoglobin 13.4 GM/DL Hematocrit 40.1 % Mean Corpuscular Volume 91.6 FL Mean Corpuscular Hemoglobin 30.5 PG Mean Corpuscular Hemoglobin 33.3 % Concent Red Cell Distribution Width 13.7 % Platelet Count 254 TH/MM3 Mean Platelet Volume 8.4 FL Neutrophils (%) (Auto) 51.5 % Lymphocytes (%) (Auto) 39.2 % Monocytes (%) (Auto) 8.2 % Eosinophils (%) (Auto) 0.8 % Basophils (%) (Auto) 0.3 % Neutrophils # (Auto) 3.6 TH/MM3 Lymphocytes # (Auto) 2.7 TH/MM3 Monocytes # (Auto) 0.6 TH/MM3 Eosinophils # (Auto) 0.1 TH/MM3 Basophils # (Auto) 0.0 TH/MM3 CBC Comment DIFF FINAL Differential Comment Sodium Level 140 MEQ/L Potassium Level 4.0 MEQ/L Chloride Level 107 MEQ/L Carbon Dioxide Level 25.7 MEQ/L Anion Gap 7 MEQ/L Blood Urea Nitrogen 12 MG/DL Creatinine 0.68 MG/DL Estimat Glomerular Filtration 90 ML/MIN Rate Random Glucose 89 MG/DL Calcium Level 8.6 MG/DL Assessment and Plan Problem List: (1) Abnormal EKG (2) Chest pain (3) Tobacco abuse Assessment and Plan 1) Presented with abnormal EKG, concern for ST elevations Catheterization with no significant disease 2) EF 55-60%, stage 1 DD, trace TR, mild MR 3) V/Q negative for PE 4) Cardiovascularly stable for discharge Konrad Celaya DO Oct 23, 2016 12:46
--- NOTE | 2016-10-23 16:48 | HHI.DS ---
Discharge Summary Admission Date Oct 22, 2016 at 08:20 Discharge Date: Oct 23, 2016 Admitting Diagnosis STEMI (1) STEMI (ST elevation myocardial infarction) ICD Code: I21.3 Procedures Cardiac catheter, revealing no substantial acute coronary disease Brief History - From Admission Dania Reilly is a pleasant 56-year-old female who presented to the [facility] Emergency Room due to chest pain on October 22, 2016. She states that she woke up in the morning and was cleaning her dishes and started getting pain in the center of her chest. This was a pressure-like pain but also had somewhat of a stabbing component to it. She said that the pain somewhat went into her left shoulder blade and left shoulder and down her arm. She states that she has had this pain once or twice while walking but never really noticed it before otherwise. On presentation to the emergency room an EKG was done and there was concern for minimal ST-T changes with possible ST elevation in the anterior leads. I was called emergently and felt that she should undergo cardiac catheterization due to her continual chest pain and EKG changes. On arrival to the lab she was on a nitroglycerin drip and had chest pain 5/10. Cardiac catheter was negative for any acute occlusion. VQ scan was also negative for pulmonary embolism. CBC/BMP: 10/23/16 0604 10/23/16 0604 Significant Findings Laboratory Tests Test 10/22/16 10/23/16 10/23/16 08:05 01:03 06:04 Monocytes (%) (Auto) 8.4 % (0.0-8.0) 8.2 % (0.0-8.0) Estimat Glomerular Filtration 69 ML/MIN (>89) Rate Random Glucose 119 MG/DL (74-106) Troponin I LESS THAN 0.02 0.06 NG/ML NG/ML (0.02-0.05) (0.02-0.05) Imaging Last Impressions Chest X-Ray 10/22/16 0807 Signed Impressions: Service Date/Time: Saturday, October 22, 2016 08:11 - CONCLUSION: No acute cardiopulmonary abnormality is identified. Farhat So MD Lung Scan-VQ Nuclear Medicine 10/22/16 0000 Signed Impressions: Service Date/Time: Saturday, October 22, 2016 14:03 - CONCLUSION: Low probability for pulmonary embolism Ayaan Garber MD FACR Pt update on day of discharge GENERAL: Resting comfortably EYES: No scleral icterus. No injection or drainage. CARDIOVASCULAR: Regular rate and rhythm without murmurs, gallops, or rubs. RESPIRATORY: Breath sounds equal bilaterally. No accessory muscle use. GASTROINTESTINAL: Abdomen soft, non-tender, nondistended. MUSCULOSKELETAL: No cyanosis, or edema. Minimal left shoulder blade tenderness palpation. Hospital Course Patient was admitted to cardiology, who performed cardiac catheter so that she had no acute coronary disease noted. They obtained a VQ scan which indicated low probability for pulmonary embolism. Patient's chest pain had resolved within less than 24 hours. It was concluded that her chest pain was more musculoskeletal related that she could take [id number] NSAIDs for this. Patient had met maximum benefit from hospitalization and was clinically stable for discharge. Pt Condition on Discharge: Good Discharge Disposition: Discharge Home Discharge Time: <= 30 minutes Discharge Instructions DIET: Follow Instructions for: As Tolerated, No Restrictions Activities you can perform: Regular-No Restrictions Follow up Referrals: PCP Follow-up - 10 Days New Medications: Aspirin (Aspirin Low Strength) 81 Mg Chew 81 MG CHEW DAILY Blood Clot Prevention #30 EA Continued Medications: Simvastatin (Zocor 40 mg) 40 Mg Tab 40 MG PO HS Tacos Huertas MD Oct 23, 2016 16:48
== END 2016-10-23 12:37 | disposition home or self-care (01) ==
LOC: PHED 07:55 → PHEDA 08:20 → UNDOADMOB 08:20 → INTOOBSV 08:20 → HCIN 10:15 → PHEDA 10:15 → PHED 10-23 12:37 → UNDODISOB 10-23 12:37
DX: I21.3 ST elevation (STEMI) myocardial infarction of unspecified site (principal); E78.5 Hyperlipidemia, unspecified; F17.200 Nicotine dependence, unspecified, uncomplicated
CPT/HCPCS: 71010; 78582; 80048; 82550; 83735; 83880; 84484; 85002; 85025; 85610; 85730; 93306; 93458; 93567; 96374; 96375; 99285; A9540; A9567; C1769; C1893; J1644; J2250; J2270; J3010; J7030; Q9967